=== PATIENT | female | born 1990 | race Two or more races ===

== ENCOUNTER → 2019-09-27 | Emergency (ER) | payer MEDICAID, OTHER ==
[~2019-09-27] VITALS: Ht 167.6 cm; Wt 59.9 kg
[~2019-09-27] MED LIST: FIORICET1 EA ORAL; PRENATAL + DHA1 EAC1 PO
[2019-09-27 18:47] VITALS: BP 124/80
[2019-09-27 19:02] VITALS: BP 105/74
--- NOTE | 2019-09-27 20:19 | Emergency Room Report ---
History of Present Illness General Chief Complaint: Headache Source: Patient Present Illness HPI Patient presents with complaints of acute headache that happened while she was at work patient reports that over the last 6 months she has been having headaches Essentially starting from the right eye going backwards To the occipital region Patient reports that these occur at any given time she has been given a referral to a neurologist however has been unable to follow Today she had an episode of the headache which was also associated with some blurriness of the right eye As the discomfort subsided the eye blurriness also subsided Denies any chest pain denies any neck pain denies any photophobia Denies any imbalance or dizziness Patient reports that the headaches have been ongoing for multiple months Denies any change with menstrual cycle denies any fevers denies any cough Allergies: Coded Allergies: No Known Allergies (Unverified , 08/07/15) COVID-19 Screening Contact w/high risk pt: No Recent Travel to affected area: No Experienced COVID-19 symptoms?: No COVID-19 Testing performed GREENHOUSE ASSISTANT: No Patient History Past Medical History: see triage record Last Menstrual Period: na Now: No Reviewed Nursing Documentation: PMH: Agreed; PSxH: Agreed Nursing Documentation-PMH Past Medical History: No History, Except For Review of Systems All Other Systems: negative except mentioned in HPI Physical Exam Vital Signs Date Time Temp Pulse Resp B/P (MAP) Pulse Ox O2 Delivery O2 Flow Rate FiO2 30/20 18:17 98.2 90 17 124/80 (95) 99 Room Air Sp02 EP Interpretation: reviewed, normal General Appearance: well appearing, no apparent distress Head: normocephalic, atraumatic Eyes: bilateral eye PERRL, bilateral eye EOMI ENT: EOM grossly intact, normal pharynx Neck: supple Respiratory: lungs clear, no respiratory distress, no retraction Cardiovascular #1: regular rate, rhythm Gastrointestinal: non tender, soft Genitourinary: no CVA tenderness Musculoskeletal: normal inspection Neurologic: alert, oriented x3 Skin: no rash Lymphatic: no adenopathy Medical Decision Making Diagnostic Impression: Primary Impression: Headache ER Course Multiple differentials including but not limited to neurological, neurosurgical , infectious process entertained patient has a benign neurological exam Has a low score for imaging Patient is afebrile Again does not meet criteria for further work-up Patient was treated symptomatically in the emergency room And is stable for close outpatient follow-up Last Vital Signs Date Time Temp Pulse Resp B/P (MAP) Pulse Ox O2 Delivery O2 Flow Rate FiO2 09/27/19 19:02 98.0 87 20 105/74 Room Air 09/27/19 18:47 99 Status: improved Disposition: HOME, SELF-CARE Condition: Improved Scripts Acetamin/Butalbital/Caffeine* (FIORICET*) 1 Ea Tab 1 TAB ORAL Q6H, #15 TAB 0 Refills Prov: Sydnee Neely DO 09/27/19 Referrals: [facility] Patient Instructions: General Headache Without Cause Additional Instructions: Patient is provided with the discharge instructions notified to follow up with primary doctor in the next 2-3 days otherwise return to the er with any worsening symptoms. Please note that this report is being documented using [employer] technology. This can lead to erroneous entry secondary to incorrect interpretation by the dictating instrument. Sydnee Neely DO September 27, 2019 20:19
== END | disposition home or self-care (01) ==
LOC: EMR 18:51
DX: R51 Headache (principal); H53.8 Other visual disturbances
CPT/HCPCS: 99282

== ENCOUNTER 2020-01-14 10:13 | Emergency (ER) | payer MEDICAID ==
[~2020-01-14] VITALS: Ht 190.5 cm; Wt 59.4 kg
[~2020-01-14 10:13] MED LIST changes: +ALPRAZOLAM0.25 MG ORAL
[2020-01-14 10:26] VITALS: BP 117/61
[2020-01-14 11:19] LABS: APPEARANCE,URINE CLEAR; BILIRUBIN, URINE NEGATIVE (NEGATIVE); COLOR,URINE PALE YELLOW; GLUCOSE, URINE (UA) NEGATIVE (NEGATIVE); KETONES,URINE 3+ (NEGATIVE); LEUKOCYTE ESTERASE ,URINE NEGATIVE (NEGATIVE); NITRITE,URINE NEGATIVE (NEGATIVE); PH,URINE 7 (4.5-8.0); PROTEIN,URINE NEGATIVE (NEGATIVE); UROBILINOGEN,URINE NORMAL MG/DL (0.0-1.0)
[2020-01-14 11:27] LABS: BASOPHILS % (AUTO) 1.1 % (0.0-2.0); EOSINOPHILS % (AUTO) 0.2 % (0.0-3.0); HEMATOCRIT 45.7 % (37.0-47.0); HEMOGLOBIN 15.6 G/DL (12.0-16.0); LYMPHOCYTES % (AUTO) 22.7 % (20.0-45.0); MEAN CORPUSCULAR VOLUME 92 FL (80-99); MONOCYTES % (AUTO) 7.5 % (1.0-10.0); NEUTROPHILS % (AUTO) 68.5 % (45.0-75.0); PLATELET COUNT 253 K/UL (150-450); RED BLOOD COUNT 4.98 M/UL (4.20-5.40); RED CELL DISTRIBUTION WIDTH 12.4 % (11.6-14.8); WHITE BLOOD COUNT 6.3 K/UL (4.8-10.8)
[2020-01-14 11:52] LABS: ANION GAP 12 mmol/L (5-15); BLOOD UREA NITROGEN 6 mg/dL (7-18); CALCIUM 9.2 MG/DL (8.5-10.1); CARBON DIOXIDE 23 MMOL/L (21-32); CHLORIDE 106 MMOL/L (98-107); CREATININE 0.7 MG/DL (0.55-1.30); POTASSIUM 3.9 MMOL/L (3.5-5.1); SODIUM 141 MMOL/L (136-145)
[2020-01-14 11:55] LABS: ALANINE AMINOTRANSFERASE 36 U/L (12-78); ALBUMIN 4.5 G/DL (3.4-5.0); ALBUMIN/GLOBULIN RATIO 1.2 (1.0-2.7); ALKALINE PHOSPHATASE 90 U/L (46-116); ASPARTATE AMINO TRANSFERASE 22 U/L (15-37); BILIRUBIN,TOTAL 0.5 MG/DL (0.2-1.0)
--- NOTE | 2020-01-14 13:13 | Emergency Room Report ---
History of Present Illness General Chief Complaint: Nausea, Vomiting, and Diarrhea Source: Patient Present Illness HPI The patient states that for the past few days she has had nausea, vomiting and diarrhea. The patient notes that she was discharged from another hospital 3 days ago. She states she has a history of migraine headaches. She states that she had presented with a migraine and vomiting. She states that she underwent a CT scan and then followed by an MRI. Initially there was some concern she may have papilledema. She follows closely with a neurologist. She brought all of the information to her neurologist from her visit to the other hospital. The neurologist does not believe that this patient has increased intracranial pressure. She is referred to an histological illustrator on . She presents today for the nausea, vomiting and diarrhea. She denies fever or chills. She denies chest pain or shortness of breath. She denies cough or congestion. She has no other complaints. Allergies: Coded Allergies: No Known Allergies (Unverified , 08/07/15) COVID-19 Screening Contact w/high risk pt: No Recent Travel to affected area: No Experienced COVID-19 symptoms?: Yes COVID-19 Screening: Negative COVID-19 COVID-19 Testing Source: naso/serum Patient History Past Medical History: see triage record, migraines Social History: Denies: smoking, alcohol use, drug use Last Menstrual Period: 01/07/20 Now: No Reviewed Nursing Documentation: PMH: Agreed; PSxH: Agreed Nursing Documentation-PMH Past Medical History: No History, Except For Review of Systems All Other Systems: negative except mentioned in HPI Physical Exam Vital Signs Date Time Temp Pulse Resp B/P (MAP) Pulse Ox O2 Delivery O2 Flow Rate FiO2 01/14/20 10:26 98.1 96 18 117/61 98 Room Air Sp02 EP Interpretation: reviewed, normal General Appearance: no apparent distress, alert, GCS 15, non-toxic Head: normocephalic, atraumatic Eyes: bilateral eye normal inspection ENT: hearing grossly normal, no angioedema, normal voice Neck: full range of motion Respiratory: no respiratory distress, no retraction, no accessory muscle use, speaking full sentences Gastrointestinal: normal bowel sounds, non tender, soft, non-distended, no guarding, no rebound Rectal: deferred Musculoskeletal: back normal, normal range of motion, gait/station normal, non- tender Neurologic: alert, motor strength/tone normal, oriented x3, responsive, speech normal Psychiatric: judgement/insight normal, memory normal, mood/affect normal, no suicidal/homicidal ideation Skin: no rash, normal color Medical Decision Making Diagnostic Impression: Primary Impression: Nausea, vomiting, and diarrhea ER Course This patient has a clinical presentation consistent with gastroenteritis. The patient's abdominal exam was benign. I do not suspect cholecystitis, pancreatitis, appendicitis or diverticulitis based on history and physical and laboratory workup. This is likely viral in etiology. The patient is nontoxic and nonsurgical at this time. Of note the patient is currently in a work-up for possible papilledema. Patient does have an eye exam with an histological illustrator scheduled. The patient has seen her neurologist and the neurologist has reviewed the MRI and CT scan and the other work-up the patient underwent at her recent hospitalization. The normal MRI rules out significant emergency etiology for this patient's possible papilledema. Patient states that she was diagnosed with complicated migraine when she left. The only other possibility is that this patient has pseudotumor cerebri. This would require a lumbar puncture to measure intracranial pressure. The patient overall is well-appearing and is being followed closely by a neurologist I do not feel that this is indicated at this time. The patient has a planned dilated eye exam with an inspector eyeglass frames. I think that this is the first step in this patient's work-up. If the patient does have true papilledema, then she should follow on with her primary neurologi st and possibly undergo a lumbar puncture with pressure reading. The patient was educated on this and indicated understanding. Patient has significant resolution of her symptoms with IV Zofran and IV fluids. I did give the patient a prescription for Zofran. The patient was given return precautions and followup instructions. Laboratory Tests Test 01/14/20 10:50 White Blood Count 6.3 K/UL (4.8-10.8) Red Blood Count 4.98 M/UL (4.20-5.40) Hemoglobin 15.6 G/DL (12.0-16.0) Hematocrit 45.7 % (37.0-47.0) Mean Corpuscular Volume 92 FL (80-99) Mean Corpuscular Hemoglobin 31.3 PG (27.0-31.0) H Mean Corpuscular Hemoglobin Concent 34.2 G/DL (32.0-36.0) Red Cell Distribution Width 12.4 % (11.6-14.8) Platelet Count 253 K/UL (150-450) Mean Platelet Volume 8.3 FL (6.5-10.1) Neutrophils (%) (Auto) 68.5 % (45.0-75.0) Lymphocytes (%) (Auto) 22.7 % (20.0-45.0) Monocytes (%) (Auto) 7.5 % (1.0-10.0) Eosinophils (%) (Auto) 0.2 % (0.0-3.0) Basophils (%) (Auto) 1.1 % (0.0-2.0) Urine Color Pale yellow Urine Appearance Clear Urine pH 7 (4.5-8.0) Urine Specific [place] 1.010 (1.005-1.035) Urine Protein Negative (NEGATIVE) Urine Glucose (UA) Negative (NEGATIVE) Urine Ketones 3+ (NEGATIVE) H Urine Blood Negative (NEGATIVE) Urine Nitrite Negative (NEGATIVE) Urine Bilirubin Negative (NEGATIVE) Urine Urobilinogen Normal MG/DL (0.0-1.0) Urine Leukocyte Esterase Negative (NEGATIVE) Sodium Level 141 MMOL/L (136-145) Potassium Level 3.9 MMOL/L (3.5-5.1) Chloride Level 106 MMOL/L (98-107) Carbon Dioxide Level 23 MMOL/L (21-32) Anion Gap 12 mmol/L (5-15) Blood Urea Nitrogen 6 mg/dL (7-18) L Creatinine 0.7 MG/DL (0.55-1.30) Estimated Glomerular Filtration Rate > 60 mL/min (>60) Glucose Level 103 MG/DL (74-106) Calcium Level 9.2 MG/DL (8.5-10.1) Total Bilirubin 0.5 MG/DL (0.2-1.0) Aspartate Amino Transferase (AST) 22 U/L (15-37) Alanine Aminotransferase (ALT) 36 U/L (12-78) Alkaline Phosphatase 90 U/L (46-116) Total Protein 8.1 G/DL (6.4-8.2) Albumin 4.5 G/DL (3.4-5.0) Globulin 3.6 g/dL Albumin/Globulin Ratio 1.2 (1.0-2.7) Lipase 83 U/L (73-393) Human Chorionic Gonadotropin, Quant 2 mIU/mL (1-6) Last Vital Signs Date Time Temp Pulse Resp B/P (MAP) Pulse Ox O2 Delivery O2 Flow Rate FiO2 01/14/20 10:26 98.1 96 18 117/61 (79) 98 Room Air Status: improved Disposition: HOME, SELF-CARE Condition: Improved Referrals: [facility] (PCP) Katelyn Russell DO Jan 14, 2020 13:13
[2020-01-14] MEDS ORDERED: ZOFRAN ODT8 MG ORAL (13:17)
[2020-01-14] MEDS ORDERED: FIORICET1 EA ORAL (13:31)
[2020-01-14 13:40] VITALS: BP 123/69
== END 2020-01-14 13:40 | disposition home or self-care (01) ==
LOC: EMR 10:45
DX: R11.2 Nausea with vomiting, unspecified (principal); R19.7 Diarrhea, unspecified
CPT/HCPCS: 36415; 80053; 81003; 83690; 84702; 85025; 96361; 96374; J2405; J7030; U0002; Z7502; 99284

== ENCOUNTER 2020-05-18 15:59 | Emergency (ER) | payer MEDICAID ==
[~2020-05-18] VITALS: Ht 170.2 cm; Wt 59.0 kg
[~2020-05-18 15:59] MED LIST changes: +ZOFRAN ODT8 MG ORAL
[2020-05-18 17:00] VITALS: BP 114/67
--- NOTE | 2020-05-18 17:00 | NUR ---
ED Nurse Note: Pt walked into ED for sore throat for 5 months. She states she has been to [facility] for same issue before and has taken antibx for it. She is alert and orientedx4, ambulatory.
--- NOTE | 2020-05-18 17:14 | Emergency Room Report ---
History of Present Illness General Chief Complaint: Sore Throat Source: Patient Present Illness HPI 29-year-old female presents to the emergency department complaining of 2 out of 10 severity persistent throat pain that she describes as midline and burning in nature x5 months. Patient reports that she has an appointment with GI specialist next month. Patient states that her PCP treated her with antibiotics early on with no relief of her symptoms. Patient reports notably worse after eating. Patient denies inability just swallow her own saliva. She denies swelling of the lips or tongue. Patient reports she also had neck and sinuses x-rayed previously as well which were unremarkable. She denies history of acid reflux. She reports caffeine use denies regular ETOH use. She denies fevers or chills. She denies neck pain/stiffness. She denies personal or familial history of thyroid disease. She denies night sweats or significant unintentional changes in her weight. She denies CP, palpitations, or SOB. Allergies: Coded Allergies: No Known Allergies (Unverified , 08/07/15) COVID-19 Screening Contact w/high risk pt: No Recent Travel to affected area: No Experienced COVID-19 symptoms?: No COVID-19 Testing performed ANALYTICS ASSOCIATE: No Patient History Past Medical History: see triage record Past Surgical History: none Pertinent Family History: none Last Menstrual Period: 04/26 Now: No Reviewed Nursing Documentation: PMH: Agreed; PSxH: Agreed Nursing Documentation-PMH Past Medical History: No History, Except For Review of Systems All Other Systems: negative except mentioned in HPI Physical Exam Vital Signs Date Time Temp Pulse Resp B/P (MAP) Pulse Ox O2 Delivery O2 Flow Rate FiO2 05/18/20 16:49 98.4 76 16 110/61 (77) 94 Room Air Medical Decision Making PA Attestation Dr. Murdock Is my supervising Physician whom patient management has been discussed with. Diagnostic Impression: Primary Impression: Esophagitis ER Course 29-year-old female presents to the emergency department complaining of 2 out of 10 severity persistent throat pain that she describes as midline and burning in nature x5 months. Patient reports that she has an appointment with GI specialist next month. Patient states that her PCP treated her with antibiotics early on with no relief of her symptoms. Patient reports notably worse after eating. Patient denies inability just swallow her own saliva. She denies swelling of the lips or tongue. Patient reports she also had neck and sinuses x-rayed previously as well which were unremarkable. She denies history of acid reflux. She reports caffeine use denies regular ETOH use. She denies fevers or chills. She denies neck pain/stiffness. She denies personal or familial history of thyroid disease. She denies night sweats or significant unintentional changes in her weight. She denies CP, palpitations, or SOB. Ddx considered but are not limited to: pharyngitis, strep, ANALYTICS ASSOCIATE, Ludwigs angina, URI, esophagitis, angioedema, thyroid disorder just to name a few. Vital signs: are WNL, pt. is afebrile H&PE are most consistent with: chronic esophagitis. --Patient is nontoxic in appearance in no acute distress, afebrile and symptoms have been rather chronic/ongoing and have already been evaluated and given GI referral. I do not suspect a bacterial infection at this time. Patient has a patent airway. ORDERS: None required at this time as the diagnosis is clinical ED INTERVENTIONS: Pt. reports having never had anti-acids for her symptoms and agrees to attempt conservative treatment with Pepcid and Viscous lidocaine -I do not identify an emergent condition at this time. With current presentation, pt. is stable for close outpatient follow up and conservative treatment. D/w pt. to return promptly to ED with worsening or new symptoms.- Pt. verbalizes' understanding and agreement with proposed treatment plan. DISCHARGE: At this time pt. is stable for d/c to home. Will provide printed patient care instructions, and any necessary prescriptions. Care plan and follow up instructions have been discussed with the patient prior to discharge. Last Vital Signs Date Time Temp Pulse Resp B/P (MAP) Pulse Ox O2 Delivery O2 Flow Rate FiO2 05/18/20 16:49 98.4 76 16 110/61 (77) 94 Room Air Disposition: HOME, SELF-CARE Condition: Stable Scripts Famotidine* (Pepcid 20mg tablet*) 20 Mg Tablet 20 MG ORAL TWICE A DAY for Gerd for 20 Days, #40 TAB 0 Refills Prov: Denice Brice 05/18/20 Lidocaine HCl 2% Viscous (Lidocaine HCl 2% Viscous) 100 Ml Solution 10 ML ORAL QID for pain, #220 ML Prov: Denice Brice 05/18/20 Referrals: [facility] (PCP) Patient Instructions: Esophagitis Additional Instructions: ~ ~ An emergent medical condition has not been identified based on this patients presentation, exam and any necessary testing/imaging. The patient is determined to be stable for outpatient follow-up and management of symptoms by a primary care provider. Take medications as directed. Follow up with a Primary Care Provider and GI SPECIALIST in 3-5 days, even if your symptoms have resolved. Return sooner to ED if new symptoms occur, or current symptoms become worse. - Please note that this Emergency Department Report was dictated using [employer] superintendent custodian janitor technology software, occasionally this can lead to erroneous entry secondary to interpretation by the dictation equipment. Denice Brice May 18, 2020 17:14
[2020-05-18] MEDS ORDERED: FAMOTIDINE20 MG ORAL (17:15)
[2020-05-18] MEDS ORDERED: LIDOCAINE VISC100 ML ORAL (17:15)
[2020-05-18 17:33] VITALS: BP 114/67
--- NOTE | 2020-05-18 17:34 | NUR ---
discharged home with instruction and rx follow up with pmd
== END 2020-05-18 17:35 | disposition home or self-care (01) ==
LOC: EMR 16:15
DX: K20.90 Esophagitis, unspecified without bleeding (principal)
CPT/HCPCS: 99282